=== PATIENT | male | born 1945 | race Caucasian/White ===

== ENCOUNTER 2018-05-08 14:59 | Inpatient (IN) | payer OTHER ==
[2018-05-08] MEDS ORDERED: ACETAMINOPHEN 500 MG TAB TUBE PRN (16:27)
[2018-05-08] MEDS ORDERED: ONDANSETRON DISINTEGRATING 4 MG TAB TUBE PRN (16:27)
[2018-05-08] MEDS ORDERED: BISACODYL 10 MG SUPP PR PRN (16:27)
[2018-05-08] MEDS ORDERED: DEXAMETHASONE 4 MG/ML VIAL IV SCH (16:30)
[2018-05-08] MEDS ORDERED: DEXAMETHASONE 0.5 MG TAB TUBE SCH (17:00)
[2018-05-08] MEDS ORDERED: DEXAMETHASONE 4 MG/ML VIAL PO SCH (17:00)
[2018-05-08] MEDS: MIDODRINE HCL 5 MG TAB TUBE SCH (18:09)
--- NOTE | 2018-05-08 18:30 | GHP ---
DATE OF ADMISSION: 05/08/2018 DATE OF EVALUATION: 05/08/2018. REFERRING FACILITY: [facility]. IMPAIRMENT GROUP: [id number]. DATE OF ONSET: 04/27/2017. POST ADMISSION PHYSICIAN EVALUATION AND REHABILITATION TREATMENT PLAN TIME: 1615. REFERRING PHYSICIAN: Dr. Duron. CONSULTING PHYSICIAN: Gilberto Covarrubias MD, neurosurgeon. REHABILITATION DIAGNOSIS: Debility with central cord syndrome status post ACDF C3-C6. ETIOLOGIC DIAGNOSIS: Traumatic spinal cord dysfunction. DATE OF SURGERY: 04/30/2018. HISTORY OF PRESENT ILLNESS: This patient was admitted to [facility] on 04/27/2018 after a syncopal event, after which he had severe bilateral upper extremity paresthesias. In the hospital an MRI of the cervical spine showed severe spinal canal stenosis at C3-4 through C5-6. He was also diagnosed with a central cord syndrome with upper extremity weakness. He had anterior cervical decompression and fusion of C3-6 on 04/30/2018. Hospital complications included hypotension with the likely etiology of his syncopal episode being orthostatic hypotension, and urinary retention requiring a Duong catheter. He had dysphagia which was pharyngeal in nature and likely due to edema postsurgical. A Dobbhoff tube was placed on 05/05/2018. STUDIES AND LABS IN THE HOSPITAL: Most recent basic metabolic profile showed overall normal electrolytes, but impaired renal function with a creatinine of 1.42. CBC showed anemia with a hemoglobin of 10.2 and hematocrit of 29.6. Platelet count was low at 85. His estimated GFR was low in the 40s. Chest x-ray was normal. MRI of the C-spine was as discussed above. After surgery he had C-spine x-rays which showed no hardware complications and normal alignment. Video esophagram showed dysphagia. The [facility] mental status exam administered on 05/07/2018, and he scored 16/30. PRECAUTIONS: He is a fall risk. He has aspiration precautions and he has orthopedic spine precautions for the C-spine. ACTIVE COMORBIDITIES: He has the tier 2 comorbidity of dysphagia. He otherwise has no tier 1, tier 2 or tier 3 comorbidities. PAST MEDICAL HISTORY: 1. Anemia. 2. Tobin's esophagus. 3. Emphysema. 4. Pancreatitis. 5. Nephrolithiasis on 12/22/2017. 6. Orthostatic hypotension. 7. Cirrhosis of the liver. 8. Pulmonary nodules. 9. Thrombocytopenia. 10. Umbilical hernia. 11. Pilonidal cyst. PAST SURGICAL HISTORY: He has had an appendectomy. He has had a ureteral stent placement and removal. He has had ureteroscopy and ablation of a stone. He has had a cholecystectomy. He has had a surgical procedure for the pilonidal cyst. PREHOSPITAL MEDICATIONS: Prior to admission he was taking tamsulosin at one point for urinary retention, but this was discontinued due to orthostatic hypotension. ADMISSION MEDICATIONS: 1. Acetaminophen 1000 mg per tube q.8 hours. 2. Bisacodyl 10 mg AK daily p.r.n. 3. Dexamethasone 1 mg IV q.12 hours with the last dose being today. 4. Fludrocortisone 0.1 mg per tube daily. 5. Gabapentin 300 mg per tube three times daily. 6. Heparin 5000 units subcu q.12 hours. 7. Midodrine 5 mg per tube three times daily. 8. Ondansetron 5 mg per tube q.8h p.r.n. nausea or vomiting. 9. Oxycodone 5 mg per tube q.4 hours p.r.n. 10. Senna 17.6 mg twice daily p.r.n. constipation. ALLERGIES: There are no known drug allergies. PSYCHOSOCIAL HISTORY: He lives in the upper level of a home with family members living in the basement. He has 2 steps to enter, after which he can live on 1 level. He has a 50 year smoking history but quit several months ago. He reports he has had no alcohol since the age of 19. 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 FAMILY HISTORY: His father of a heart attack. REVIEW OF SYSTEMS: He has some soreness bilaterally of the upper arms. He thinks he may have fallen on his left shoulder. He is aware of some weakness, but thinks he has fairly good strength of the arms and legs. He has some discomfort from the cervical collar, but otherwise denies pain. He has no cough or dyspnea. He has no nausea, vomiting, constipation, or diarrhea. He is sleeping well. He is in good spirits. Otherwise, a 10-point review of systems is negative. PHYSICAL EXAM: VITAL SIGNS: Blood pressure is 116/62, heart rate is 63, respiratory rate is 18, oxygen saturation is 97% on room air, temperature is 36.9 degrees centigrade. His weight is 75.3 kg for a body mass index of 21.3. GENERAL: This is a well-nourished, well-developed man, appears his chronologic age, in bed dressed in street clothes with cervical collar in place. Cooperative and in no acute distress. HEENT: Extraocular movements are intact. Pupils are equal, round, and reactive to light. Mucous membranes are moist. He is edentulous. He has a crowded airway, Mallampati class 3. NECK: There is a surgical scar that appears to be closed with skin glue. There is no erythema or drainage. It is on the left anterior neck. HEART: Sounds are somewhat distant. There is a regular rate and rhythm with no murmurs, rubs, or gallops. LUNGS: Clear to auscultation bilaterally with reduced breath sounds and a prolonged expiratory phase. ABDOMEN: Soft, nontender, nondistended with normoactive bowel sounds and no hepatosplenomegaly. EXTREMITIES: There is no cyanosis, clubbing, or edema. NEUROLOGIC: He is alert and oriented x3. Cranial nerves 2-12 are grossly intact, though he has a weak labial seal bilaterally. Motor strength in the upper extremities is 5/5 at the deltoids, 4/ 5 at the biceps and the triceps. Hand chute builder are 4/5. He is perhaps slightly stronger on the right than the left. In the lower extremities hip flexors are 5 /5, hamstrings 4/5, quadriceps 4/5, plantar flexion 5/5 and dorsiflexion 5/5. Sensation is intact to light touch. Deep tendon reflexes are globally hypoactive. CURRENT LEVEL OF FUNCTION: Per the preadmission screen, he was n.p.o., Grooming required moderate assist, dressing required maximal assist, toileting required moderate assist for a urinal, (though as he has a Duong in place) and minimal assist for transfers to the commode with a front-wheeled walker. He had urinary retention. Bed mobility was done with supervision to minimal assist with voice cues for log rolling. Transfers required supervision with voice cues. He was using a front-wheeled walker. Seated balance was independent. Dynamic seated balance required contact guard assist and dynamic standing balance required minimal assist. Endurance was fair. He was able to ambulate 25 feet with minimal assist and a front-wheeled walker. Communication and cognition were considered to be normal. IMPRESSION: This is a 72-year-old man who suffered a syncopal fall, likely due to orthostatic hypotension, and subsequently developed significant paresthesias of the bilateral upper extremities and weakness. He was diagnosed with severe central canal stenosis of the cervical spine and underwent anterior cervical decompression and fusion on 04/30/2018. Complications included severe pharyngeal dysphagia for which a Dobbhoff tube was placed, and he is n.p.o.; he also had urinary retention and has a Duong in place. He has a chronic coagulopathy, anemia and thrombocytopenia, likely due to cirrhosis. The etiology of the cirrhosis is unclear, perhaps there was a history of non alcoholic steatohepatitis. He reports that he has previously weighed as much as 265 pounds. He is appropriate for inpatient rehabilitation with needs for physical and occupational therapies to optimize his mobility and activities of daily living, as well as speech and language pathology regarding swallowing and cognition. His goal is to complete a rehabilitation stay and then return home with family and supportive services. For a safe discharge, he will need to achieve modified independence for ADLs and functional activities. He will be tolerating the least restrictive diet. He may require assistance for shopping, and ambulation with the least restrictive device. He will need to understand and maintain spinal precautions during all activities. He will have therapy with Physical Therapy, Occupational Therapy, and Speech and Language Pathology for 60 minutes per day for each discipline, 5-7 days of the week. His expected duration of stay is 10-14 days. It is anticipated that upon discharge he will continue to benefit from Home Health services including Nursing, Speech and Language Pathology, a nurse's aide , social work, Occupational Therapy, and Physical Therapy. Additionally, he will likely benefit from a spinal cord injury support group. PLAN: 1. Central cord syndrome, status post C3-6 ACDF on 04/28/2018. PT and OT to optimize mobility and activities of daily living. 2. Severe dysphagia, pharyngeal, likely due to swelling postsurgical. He has been on dexamethasone for several days, last dose of which will be today. He will have intensive therapy with Speech and Language Pathology to optimize his swallow. Will order a dietary consult to optimize his tube feeding. 3. Question of cognitive impairment with a score of 16/30 on the [facility] Mental Status Exam. Further evaluation and treatment per Speech and Language Pathology. 4. Orthostatic hypotension. Continue fludrocortisone 0.1 mg daily and midodrine 5 mg three times daily. I have changed the timing to be before meals to avoid nighttime supine hypertension. Will check orthostatic vitals every morning and any time that he has symptoms. He will wear PAULA hose, as well as an abdominal binder. 5. Urinary retention with likely history of BPH. Previously prescribed tamsulosin. Tamsulosin was discontinued due to hypotension. Will monitor his blood pressure and if he has adequate compensation for the orthostatic hypotension with his current medications, will consider reinitiation of tamsulosin. In any case, we will do a voiding trial after several days during his stay. 6. Emphysema. Appears to be well compensated and not needing oxygen. 7. Symptom management. Continue acetaminophen, gabapentin, and oxycodone. He will be assessed for pain and medications adjusted as needed. 8. Postsurgical precautions. Cervical collar at all times. May remove to work with speech therapy on swallowing. 9. Hepatic cirrhosis, possibly due to nonalcoholic steatohepatitis. Check CBC and CMP in the morning to ensure that his blood counts are improving and to assess the status of his hepatic and renal function. If his platelet count is dropping, consider evaluation for heparin-induced thrombocytopenia, as he does not have a lot of margin in terms of adequacy of platelets. He may have a component of hepatorenal syndrome and will monitor his renal function in order to ensure that medication dosage is appropriate. 10. Pilonidal cyst. Cover with Mepilex dressing to protect against pressure and shear. FOLLOW UP: 1. He will see his primary care physician, Jose Martin Bowling after his discharge. 2. He will see neurosurgeon, Dr. Zamudio, at [facility] in 3-4 weeks, and will need to call to schedule. 3. He will see [facility] about orthostatic hypotension after discharge from inpatient rehabilitation. /[id number]/MODL MTDD
[2018-05-08] MEDS: ACETAMINOPHEN 650 MG/20.3 ML UDCUP TUBE PRN (20:41)
[2018-05-08] MEDS: HEPARIN 5,000 UNIT/0.5 ML INJ SC SCH (20:45)
[2018-05-08] MEDS: GABAPENTIN 250 MG/5 ML 30 ML BOTTLE TUBE SCH (20:55)
[2018-05-09 07:00] LABS: PLATELET COUNT 98 10^3/uL (150-400)
[2018-05-09] MEDS: oxyCODONE ORAL SOLUTION 10 MG/0.5 ML UDSYR TUBE PRN ×2 (07:58→15:04)
[2018-05-09] MEDS: ACETAMINOPHEN 650 MG/20.3 ML UDCUP TUBE PRN ×2 (08:01→17:48)
[2018-05-09] MEDS: GABAPENTIN 250 MG/5 ML 30 ML BOTTLE TUBE SCH ×3 (08:05→20:07)
[2018-05-09] MEDS: FLUDROCORTISONE ACETATE 0.1 MG TAB TUBE SCH (08:07)
[2018-05-09] MEDS: MIDODRINE HCL 5 MG TAB TUBE SCH ×3 (08:18→17:47)
[2018-05-09] MEDS: HEPARIN 5,000 UNIT/0.5 ML INJ SC SCH ×2 (08:22→19:59)
--- NOTE | 2018-05-09 09:48 | SOAPPROG ---
SOAP Progress Note Assessment/Plan: Assessment/ Plan: 1. Central cord syndrome, status post C3-6 ACDF on 04/28/2018. PT and OT to optimize mobility and activities of daily living. 2. Severe dysphagia, pharyngeal, likely due to swelling postsurgical. He has been on dexamethasone for several days, last dose of which will be 05/08/18. - Speech and Language Pathology to optimize his swallow. - Dietary consult to optimize his tube feeding in the meantime. 3. Question of cognitive impairment with a score of 16/30 on the [facility] Mental Status Exam. - Speech and Language Pathology to continue to assess. - RN's providing appropriate precautions - not showing any impulsivity 4. Orthostatic hypotension. - fludrocortisone 0.1 mg daily and midodrine 5 mg three times daily. Will adjust or add PRN as needed to help with therapy participation - check orthostatic vitals every morning and any time that he has symptoms. - Wear PAULA hose, as well as an abdominal binder. 5. Urinary retention with likely history of BPH. Previously prescribed tamsulosin. Tamsulosin was discontinued due to hypotension. - Likely combination of Neurogenic bladder + previous emptying challenges. - Currently using a butler catheter for bladder management. Will allow for next couple days to allow patient to 'settle' in to rehab. feeling somewhat overwhelmed by all the different needs he has currently. - Introduced concept of intermittent cathing. Will ask RN's to provide education prior to butler removal. 6. Emphysema. Appears to be well compensated and not needing oxygen. 7. Pain management - Continue acetaminophen, gabapentin, and oxycodone. Adjust as needed 8. Postsurgical precautions. - Per NSG on 05/08 - Ok to remove with eating trials with VEGETABLE THINNER and to transition in to a shower collar - Otherwise should be worn at all times - Incision is healing well - no evidence of infection 9. Hepatic cirrhosis, possibly due to nonalcoholic steatohepatitis. We will recheck CBC and CMP in the morning to ensure that his blood counts are improving and to assess the status of his hepatic and renal function. If his platelet count is dropping, then we will consider evaluation for heparin-induced thrombocytopenia, as he does not have a lot of margin in terms of adequacy of platelets. He may have a component of hepatorenal syndrome and will monitor his renal function in order to ensure that medication dosage is appropriate. - Kidney function improved as compared to labs from the - had Creatinine in the 2's - Plts within normal function per what I have at outside hospital (around 80' s-100's) 10. Anemia - Likely post-op induced. H/H stable at as compared to labs taken over from outside hospital. No evidence of bleeding- will continue to monitor 11. Pilonidal cyst. We will cover with Mepilex dressing to protect against pressure and shear. FOLLOW UP: 1. He will see his primary care physician, Jose Martin Bowling after his discharge. 2. He will see neurosurgeon, Dr. Zamudio, at [facility] in 3-4 weeks, and will need to call to schedule. 3. He will see [facility] about orthostatic hypotension after discharge from inpatient rehabilitation. 05/09/18 09:42 Subjective: Feeling generally OK. Just a lot going on. Able to provide details regarding his fall -not sure that he had any LOC. Pain is pretty well controlled - just tired of having so many 'tubes' around. Reports that use to be a big water drinker and so the dysphagia is pretty frustrating. no new neurologic changes. 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 no fevers/ chills Objective: Vital Signs Temp Pulse Resp BP Pulse Ox 97.5 F 55 L 13 116/63 96 05/09/18 08:00 05/09/18 08:00 05/09/18 08:00 05/09/18 08:00 05/09/18 08:00 Laboratory Results 05/09/18 05:50 05/09/18 05:50 05/08/18 05/09/18 05/10/18 05:59 05:59 05:59 Intake Total 860 Output Total 700 Balance 160 Physical Exam - Physical Exam General Appearance: alert, other (sitting relatively comfortable in his chair. Interactive) EENT: PERRL/EOMI, other (Does have an NG tube - Cervical collar is in place) Respiratory: lungs clear Cardiac/Chest: regular rate, rhythm Abdomen: non-tender, soft Extremities: other (no edema) Neuro/Psych: alert, normal mood/affect ICD10 Worksheet Patient Problems: Problems Problem Status Onset Central cord syndrome Acute Status post cervical spinal fusion Acute
[2018-05-09] MEDS ORDERED: MELATONIN 3 MG TAB PO PRN (09:56)
[2018-05-09] MEDS ORDERED: MELATONIN 3 MG TAB TUBE PRN (10:30)
[2018-05-10] MEDS: oxyCODONE ORAL SOLUTION 10 MG/0.5 ML UDSYR TUBE PRN ×3 (04:05→14:34)
[2018-05-10] MEDS: ACETAMINOPHEN 650 MG/20.3 ML UDCUP TUBE PRN ×2 (07:21→16:03)
[2018-05-10] MEDS: MIDODRINE HCL 5 MG TAB TUBE SCH ×3 (07:45→16:04)
[2018-05-10] MEDS: GABAPENTIN 250 MG/5 ML 30 ML BOTTLE TUBE SCH ×3 (08:13→21:47)
[2018-05-10] MEDS: HEPARIN 5,000 UNIT/0.5 ML INJ SC SCH (08:14)
[2018-05-10] MEDS: FLUDROCORTISONE ACETATE 0.1 MG TAB TUBE SCH (08:14)
--- NOTE | 2018-05-10 09:15 | SOAPPROG ---
SOAP Progress Note Assessment/Plan: Assessment/ Plan: 1. Central cord syndrome, status post C3-6 ACDF on 04/28/2018. PT and OT to optimize mobility and activities of daily living. 2. Severe dysphagia, pharyngeal, likely due to swelling postsurgical. He has been on dexamethasone for several days, last dose of which will be 05/08/18. - Speech and Language Pathology to optimize his swallow. - Dietary consult to optimize his tube feeding in the meantime. 3. Question of cognitive impairment with a score of 16/30 on the [facility] Mental Status Exam. - Speech and Language Pathology to continue to assess. - RN's providing appropriate precautions - not showing any impulsivity at current time 4. Orthostatic hypotension.- had some problems predating this injury which could also be contributing - fludrocortisone 0.1 mg daily and midodrine 5 mg three times daily. Add 5mg PRN in the am if BP not responding within 1hr after taking scheduled dose - Can consider neosynephrine drops if needed for quicker acting support especially if not tolerating therapy well. - check orthostatic vitals every morning and any time that he has symptoms. - Wear PAULA hose, as well as an abdominal binder. 5. Urinary retention with likely history of BPH. Previously prescribed tamsulosin. Tamsulosin was discontinued due to hypotension. - Likely combination of Neurogenic bladder + previous emptying challenges. - Currently using a butler catheter for bladder management. Will allow for next couple days to allow patient to 'settle' in to rehab. feeling somewhat overwhelmed by all the different needs he has currently. - Introduced concept of intermittent cathing. Will ask RN's to provide education prior to butler removal. 6. Emphysema. Appears to be well compensated and not needing oxygen. 7. Pain management - Mostly situated in the shoulders - Continue acetaminophen, gabapentin, and oxycodone. Adjust as needed - Add lidocaine patch at night to both shoulders - hopefully this will be helpful. May also consider voltaren gel 8. Postsurgical precautions. - Per NSG on 05/08 - Ok to remove with eating trials with MAIL PROCESSING ASSOCIATE and to transition in to a shower collar - Otherwise should be worn at all times - Incision is healing well - no evidence of infection 9. Hepatic cirrhosis, possibly due to nonalcoholic steatohepatitis. We will recheck CBC and CMP in the morning to ensure that his blood counts are improving and to assess the status of his hepatic and renal function. If his platelet count is dropping, then we will consider evaluation for heparin-induced thrombocytopenia, as he does not have a lot of margin in terms of adequacy of platelets. He may have a component of hepatorenal syndrome and will monitor his renal function in order to ensure that medication dosage is appropriate. - Creatinine was in the 2's in th earlier part of Apr. Most recent BUN 30/ Cr 1.4 (05/09/18) - Plts within normal function per what I have at outside hospital (around 80' s-100's) 10. Anemia - Likely post-op induced. H/H stable around 02/10 as compared to labs taken over from outside hospital. No evidence of bleeding- will continue to monitor intermittently. 11. Pilonidal cyst. We will cover with Mepilex dressing to protect against pressure and shear. 12. Insomnia - Likely a combination of surroundings, pain and irritants (NG tube , collar,etc) - Have added Melatonin 3mg qhs. Will monitor effect FOLLOW UP: 1. He will see his primary care physician, Jose Martin Bowling after his discharge. 2. He will see neurosurgeon, Dr. Zamudio, at [facility] in 3-4 weeks, and will need to call to schedule. 3. He will see [facility] about orthostatic hypotension after discharge from inpatient rehabilitation. 05/10/18 09:34 Subjective: Had a rough night last night - Struggled with sleep - 2/2 pain/location. feeling a little defeated today. 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 BP still low today - Will need to work with his PCP tomorrow when they are in the office to determine the extend of the work up that was completed prior (since this isn't fully new although seems somewhat exacerbated since the cervical injury). No BP since arrival on our service. Still with butler in place Objective: Vital Signs Temp Pulse Resp BP Pulse Ox 97.4 F 76 16 108/63 98 05/10/18 06:04 05/10/18 06:04 05/10/18 06:04 05/10/18 06:04 05/10/18 06:04 Laboratory Results 05/09/18 05:50 05/09/18 05:50 05/09/18 05/10/18 05/11/18 05:59 05:59 05:59 Intake Total 252 274 8162 Output Total 700 825 Balance 216 55 2251 Physical Exam - Physical Exam General Appearance: alert, other (Appears tired and a little down today) EENT: PERRL/EOMI, other (Well healing incision on the anterior neck, Cervical collar in place) Respiratory: lungs clear, normal breath sounds Cardiac/Chest: regular rate, rhythm Abdomen: non-tender, soft, other (Abdominal Binder in place) Extremities: other (No LE edema, Has compression stockings on) Neuro/Psych: alert ICD10 Worksheet Patient Problems: Problems Problem Status Onset Central cord syndrome Acute Status post cervical spinal fusion Acute
[2018-05-10] MEDS ORDERED: PNEUMOC 13-VAL CONJ-DIP CRM/PF 0.5 ML SYR (PREVNAR 13) IM ONE (09:18)
--- NOTE | 2018-05-10 11:57 | PDOREHIP ---
Admission [facility] - Admission - 3 Day Assessment Period Admission Date/Day 1: 05/08/18 Day 2: 05/09/18 Day 3: 05/10/18 - Active Diagnoses Comorbidities and Co-existing Conditions at Admission: 11852. None of the Above - Skin Conditions Unhealed Pressure Ulcer (1 or more/Stage 1 or >)-Admission: 0. No # Stage 1 Pressure Ulcers-Admission: 0 # Stage 2 Pressure Ulcers-Admission: 0 # Stage 3 Pressure Ulcers-Admission: 0 # Stage 4 Pressure Ulcers-Admission: 0 # Unstageable Pressure Ulcers (Non-remove Dress)-Admission: 0 # Unstageable Pressure Ulcers (Slough/Eschar)-Admission: 0 # Unstageable Pressure Ulcers (Deep Tissue Injury)-Admission: 0
[2018-05-10] MEDS: SENNOSIDES 17.6 MG/10 ML UDL PO PRN (14:33)
[2018-05-10] MEDS ORDERED: HYDROmorphONE/DILAUDID 1 MG/ML INJ SC PRN (19:52)
[2018-05-10] MEDS ORDERED: ACETAMINOPHEN 650 MG SUPP PR PRN (19:53)
[2018-05-10] MEDS ORDERED: HEPARIN 5,000 UNIT/0.5 ML INJ SC ONE (20:00)
[2018-05-10] MEDS: HYDROmorphONE/DILAUDID 2 MG/ML INJ SC PRN (20:45)
[2018-05-10] MEDS ORDERED: LIDOCAINE 4%/MENTHOL 1% PATCH TD SCH (21:00)
[2018-05-10] MEDS ORDERED: PATCH REMOVAL 1 EA PATCH TD SCH (21:00)
[2018-05-11] MEDS: HYDROmorphONE/DILAUDID 2 MG/ML INJ SC PRN ×3 (00:32→21:25)
[2018-05-11] MEDS ORDERED: MIDODRINE HCL 5 MG TAB TUBE PRN (08:00)
--- NOTE | 2018-05-11 13:01 | SOAPPROG ---
SOAP Progress Note Assessment/Plan: Assessment: Central cord syndrome, status post C3-6 ACDF on 04/28/2018. * Initial functional independence measure is 67 on 05/11/2018. He is independent with bed mobility. Transfers require standby assistance and cues. He ambulated 170 ft with a front wheeled walker and standby assist. He climbed and descended 3 steps with 1 rail, contact guard assist. He has decreased endurance. Upper body dressing required minimal assist and cues. Lower body dressing required moderate assist but maximal assist for Paula hose. Grooming and hygiene were done seated with minimal assistance. * Continue PT and OT to optimize mobility and activities of daily living. Severe dysphagia, pharyngeal, likely due to swelling postsurgical. He has completed a course of dexamethasone. * Continue Speech and Language Pathology to optimize his swallow. * Dietary consult to optimize his tube feeding. * Feeding to accidentally dislodged yesterday, 05/10/2018. Rehab nursing has been unable to place an NG. Going to Radiology today for tube placement. If not successful he needs GI or IR consult and PEG placement. Question of cognitive impairment with a score of 16/30 on the [facility] Mental Status Exam. Further evaluation and treatment per Speech and Language Pathology. Orthostatic hypotension. Continue fludrocortisone 0.1 mg daily and midodrine 5 mg three times daily meals. He will wear PAULA hose, as well as an abdominal binder. * Check orthostatic vitals every morning and any time that he has symptoms. * An extra morning dose of midodrine was added as needed for orthostatic symptoms, starting 05/11/2018.. Urinary retention with likely history of BPH. Previously prescribed tamsulosin. Tamsulosin was discontinued due to hypotension. * If he has adequate compensation for the orthostatic hypotension with his current medications, will consider reinitiation of tamsulosin. * Voiding trial after several days during his stay. * Consider training in intermittent self catheterization. Emphysema. Appears to be well compensated and not needing oxygen. Symptom management. Continue acetaminophen, gabapentin, and oxycodone. He will be assessed for pain and medications adjusted as needed. Hepatic cirrhosis, possibly due to nonalcoholic steatohepatitis. * He may have a component of hepatorenal syndrome. Renal function is stable on labs 05/09/2018 with creatinine at 1.4 an estimated GFR of 50. * Anemia and thrombocytopenia are stable on labs 05/09/2018. Pilonidal cyst. Cover with Mepilex dressing to protect against pressure and shear. Postsurgical precautions. Cervical collar at all times. May remove to work with speech therapy on swallowing. DISPOSITION: Attended staffing, 15 min. Discussed with case management, nursing, PT, OT. Mobility is considerably improved but he still has needs, and will likely continue to need BREAD WRAPPING MACHINE FEEDER longer than PT and OT. Would ideally also resolve urinary retention before discharge. Tentative discharge date set for . Will discharge home with family. FOLLOW UP: 1. He will see his primary care physician, Jose Martin Bowling after his discharge. 2. He will see neurosurgeon, Dr. Zamudio, at [facility] in 3-4 weeks, and will need to call to schedule. 3. He will see [facility] about orthostatic hypotension after discharge from inpatient rehabilitation. 05/11/18 13:03 Subjective: Dobbhoff tube was inadvertently removed yesterday by an granddaughter. He currently denies pain, fevers, chills, cough, dyspnea. Objective: Vital Signs Temp Pulse Resp BP Pulse Ox 36.8 C 69 16 120/61 97 05/11/18 05:04 05/11/18 05:04 05/11/18 05:04 05/11/18 05:04 05/11/18 05:04 Laboratory Results 05/09/18 05:50 05/09/18 05:50 05/10/18 05/11/18 05/12/18 05:59 05:59 05:59 Intake Total 905 1260 Output Total 825 575 Balance 80 685 - Time Spent With Patient Time Spent With Patient: Greater than 35 min floor time today, including more than 50% of time in coordination of care during staffing meeting, and counseling patient. Physical Exam - Physical Exam General Appearance: WD/WN, alert, no apparent distress Respiratory: normal breath sounds, decreased breath sounds, No crackles, No rhonchi, No wheezing Cardiac/Chest: regular rate, rhythm, edema (Trace bilateral pretibial), No diastolic murmur, No systolic murmur Skin: normal color, warm/dry Neuro/Psych: alert, normal mood/affect, oriented x 3 ICD10 Worksheet Patient Problems: Problems Problem Status Onset Central cord syndrome Acute Status post cervical spinal fusion Acute
[2018-05-11] MEDS ORDERED: LIDOCAINE 2% JELLY 5 ML TUBE ONE (13:57)
[2018-05-11] MEDS ORDERED: BENZOCAINE UNIT DOSE SPRAY HURRICAINE MM ONE (13:57)
[2018-05-11] MEDS ORDERED: NS 1,000 ML IV SCH (14:45)
[2018-05-11] MEDS: ENOXAPARIN 40 MG/0.4 ML SYR SC SCH (18:00)
[2018-05-11] MEDS: GABAPENTIN 250 MG/5 ML 30 ML BOTTLE TUBE SCH ×2 (18:02→21:07)
[2018-05-11] MEDS: FLUDROCORTISONE ACETATE 0.1 MG TAB TUBE SCH (18:02)
[2018-05-11] MEDS: LIDOCAINE 4%/MENTHOL 1% PATCH TD SCH (18:03)
[2018-05-11] MEDS: MIDODRINE HCL 5 MG TAB TUBE SCH ×2 (18:03→19:27)
[2018-05-11] MEDS: PATCH REMOVAL 1 EA PATCH TD SCH (21:07)
[2018-05-11] MEDS: oxyCODONE ORAL SOLUTION 10 MG/0.5 ML UDSYR TUBE PRN (21:25)
[2018-05-12] MEDS: MIDODRINE HCL 5 MG TAB TUBE SCH ×3 (06:22→16:13)
[2018-05-12] MEDS: oxyCODONE ORAL SOLUTION 10 MG/0.5 ML UDSYR TUBE PRN ×4 (06:22→20:10)
[2018-05-12] MEDS: LIDOCAINE 4%/MENTHOL 1% PATCH TD SCH (08:26)
[2018-05-12] MEDS: ENOXAPARIN 40 MG/0.4 ML SYR SC SCH (08:27)
[2018-05-12] MEDS: GABAPENTIN 250 MG/5 ML 30 ML BOTTLE TUBE SCH ×3 (08:27→20:10)
[2018-05-12] MEDS: FLUDROCORTISONE ACETATE 0.1 MG TAB TUBE SCH (08:27)
[2018-05-12] MEDS: SENNOSIDES 17.6 MG/10 ML UDL PO PRN (11:43)
--- NOTE | 2018-05-12 15:22 | SOAPPROG ---
SOAP Progress Note Assessment/Plan: Assessment: Central cord syndrome, status post C3-6 ACDF on 04/28/2018. * Initial functional independence measure is 67 on 05/11/2018. He is independent with bed mobility. Transfers require standby assistance and cues. He ambulated 170 ft with a front wheeled walker and standby assist. He climbed and descended 3 steps with 1 rail, contact guard assist. He has decreased endurance. Upper body dressing required minimal assist and cues. Lower body dressing required moderate assist but maximal assist for Paula hose. Grooming and hygiene were done seated with minimal assistance. * Continue PT and OT to optimize mobility and activities of daily living. Severe dysphagia, pharyngeal, likely due to swelling postsurgical. He has completed a course of dexamethasone. * Continue Speech and Language Pathology to optimize his swallow. As of 2018, he has made little progress. WARE DRESSER advises consideration of PEG placement. * Dietary consult to optimize his tube feeding. * Feeding to accidentally dislodged yesterday, 05/10/2018. Replaced by Radiology , 05/11/2018. Question of cognitive impairment with a score of 16/30 on the [facility] Mental Status Exam. Further evaluation and treatment per Speech and Language Pathology. Orthostatic hypotension. Continue fludrocortisone 0.1 mg daily and midodrine 5 mg three times daily meals. He will wear PAULA hose, as well as an abdominal binder. * Check orthostatic vitals every morning and any time that he has symptoms. * An extra morning dose of midodrine was added as needed for orthostatic symptoms, starting 05/11/2018.. Urinary retention with likely history of BPH. Previously prescribed tamsulosin. Tamsulosin was discontinued due to hypotension. * If he has adequate compensation for the orthostatic hypotension with his current medications, will consider reinitiation of tamsulosin. * Orthostatic blood pressure has improved and he is asymptomatic as of 2018. Will restart tamsulosin at 0.4 mg q.day on 05/12/2018. Voiding trial on . * Consider training in intermittent self catheterization. Emphysema. Appears to be well compensated and not needing oxygen. Symptom management. Continue acetaminophen, gabapentin, and oxycodone. He will be assessed for pain and medications adjusted as needed. Hepatic cirrhosis, possibly due to nonalcoholic steatohepatitis. * He may have a component of hepatorenal syndrome. Renal function is stable on labs 05/09/2018 with creatinine at 1.4 an estimated GFR of 50. * Anemia and thrombocytopenia are stable on labs 05/09/2018. Pilonidal cyst. Cover with Mepilex dressing to protect against pressure and shear. Postsurgical precautions. Cervical collar at all times. May remove to work with speech therapy on swallowing. DISPOSITION: Mobility is considerably improved but he still has needs, and will likely continue to need WARE DRESSER longer than PT and OT. Would ideally also resolve urinary retention before discharge. Tentative discharge date set for . Will discharge home with family. FOLLOW UP: 1. He will see his primary care physician, Jose Martin Bowling after his discharge. 2. He will see neurosurgeon, Dr. Zamudio, at [facility] in 3-4 weeks, and will need to call to schedule. 3. He will see [facility] about orthostatic hypotension after discharge from inpatient rehabilitation. 05/12/18 15:02 Subjective: Slept okay. Not in pain. No cough or dyspnea. Denies feeling lightheaded or dizzy. Objective: Vital Signs Temp Pulse Resp BP Pulse Ox 36.4 C 64 17 113/67 96 05/12/18 05:27 05/12/18 08:00 05/12/18 05:27 05/12/18 08:00 05/12/18 05:27 Laboratory Results 05/09/18 05:50 05/09/18 05:50 05/11/18 05/12/18 05/13/18 05:59 05:59 05:59 Intake Total 1260 2415 Output Total 575 1550 Balance 685 865 Physical Exam - Physical Exam General Appearance: WD/WN, alert, no apparent distress Respiratory: No respiratory distress, No accessory muscle use Skin: normal color, warm/dry Neuro/Psych: alert, normal mood/affect, oriented x 3 ICD10 Worksheet Patient Problems: Problems Problem Status Onset Central cord syndrome Acute Status post cervical spinal fusion Acute
[2018-05-12] MEDS ORDERED: TAMSULOSIN HCL 0.4 MG CAP PO SCH (15:30)
[2018-05-12] MEDS: PATCH REMOVAL 1 EA PATCH TD SCH (20:10)
[2018-05-13] MEDS: oxyCODONE ORAL SOLUTION 10 MG/0.5 ML UDSYR TUBE PRN ×3 (00:10→19:34)
[2018-05-13] MEDS: MIDODRINE HCL 5 MG TAB TUBE SCH ×3 (07:01→15:49)
[2018-05-13] MEDS: LIDOCAINE 4%/MENTHOL 1% PATCH TD SCH (07:52)
[2018-05-13] MEDS: FLUDROCORTISONE ACETATE 0.1 MG TAB TUBE SCH (08:31)
[2018-05-13] MEDS: GABAPENTIN 250 MG/5 ML 30 ML BOTTLE TUBE SCH ×3 (08:31→21:47)
[2018-05-13] MEDS: ENOXAPARIN 40 MG/0.4 ML SYR SC SCH (08:31)
--- NOTE | 2018-05-13 14:18 | SOAPPROG ---
SOAP Progress Note Assessment/Plan: Assessment: Central cord syndrome, status post C3-6 ACDF on 04/28/2018. * Initial functional independence measure is 67 on 05/11/2018, improved to 72 as of 05/13/2018. Supervision for transfers. Walked 350 ft with standby assist. Climbed and descended 3 steps with standby assist. Upper body and lower body dressing with standby assist except needs assist for Duong catheter. Independent with bed mobility. He has reduced endurance. * Continue PT and OT to optimize mobility and activities of daily living. Severe dysphagia, pharyngeal, likely due to swelling postsurgical. He has completed a course of dexamethasone. * Continue Speech and Language Pathology to optimize his swallow. As of 2018, he has made little progress. SANDBLAST OPERATOR advises consideration of PEG placement. * Discussed with patient 05/13/2018. He prefers to wait several more days before deciding. * Feeding to accidentally dislodged yesterday, 05/10/2018. Replaced by Radiology , 05/11/2018. Question of cognitive impairment with a score of 18/30 on the [facility] Mental Status Exam on 10/01/2018. Further evaluation and treatment per Speech and Language Pathology. Orthostatic hypotension. Continue fludrocortisone 0.1 mg daily and midodrine 5 mg three times daily meals. He will wear PAULA hose, as well as an abdominal binder. * Check orthostatic vitals every morning and any time that he has symptoms. * An extra morning dose of midodrine was added as needed for orthostatic symptoms, starting 05/11/2018.. Urinary retention with likely history of BPH. Previously prescribed tamsulosin. Tamsulosin was discontinued due to hypotension. * If he has adequate compensation for the orthostatic hypotension with his current medications, will consider reinitiation of tamsulosin. * Orthostatic blood pressure has improved and he is asymptomatic as of 2018. Unable to restart tamsulosin because it can't be administered through the NG tube. Voiding trial on 05/15/2018. * Consider training in intermittent self catheterization. Emphysema. Appears to be well compensated and not needing oxygen. Symptom management. Continue acetaminophen, gabapentin, and oxycodone. He will be assessed for pain and medications adjusted as needed. Hepatic cirrhosis, possibly due to nonalcoholic steatohepatitis. * He may have a component of hepatorenal syndrome. Renal function is stable on labs 05/09/2018 with creatinine at 1.4 an estimated GFR of 50. * Anemia and thrombocytopenia are stable on labs 05/09/2018. Pilonidal cyst. Cover with Mepilex dressing to protect against pressure and shear. Postsurgical precautions. Cervical collar at all times. May remove to work with speech therapy on swallowing. DISPOSITION: Attended staffing, 15 min. Discussed with case management, dietitian, nursing, PT, OT, SANDBLAST OPERATOR. Mobility is considerably improved but he still has needs, and will likely continue to need SANDBLAST OPERATOR longer than PT and OT. Would ideally also resolve urinary retention before discharge. Tentative discharge date set for 05/22/2018. Will discharge home with family. FOLLOW UP: 1. He will see his primary care physician, Jose Martin Bowling after his discharge. 2. He will see neurosurgeon, Dr. Zamudio, at [facility] in 3-4 weeks, and will need to call to schedule. 3. He will see [facility] about orthostatic hypotension after discharge from inpatient rehabilitation. 05/13/18 14:14 Subjective: Continues to have severe dysphagia and speech pathology is recommending consideration of PEG tube placement. Otherwise he is without complaints. He denies symptoms of dizziness or lightheadedness with standing. Nursing reports no bowel movement for several days. Objective: Vital Signs Temp Pulse Resp BP Pulse Ox 36.8 C 60 16 110/59 L 97 05/13/18 06:43 05/13/18 12:33 05/13/18 06:43 05/13/18 12:33 05/13/18 12:33 Laboratory Results 05/09/18 05:50 05/09/18 05:50 05/12/18 05/13/18 05/14/18 05:59 05:59 05:59 Intake Total 2415 2770 Output Total 1550 1725 Balance 865 1045 Physical Exam - Physical Exam General Appearance: WD/WN, alert, no apparent distress Respiratory: No respiratory distress, No accessory muscle use Skin: normal color, warm/dry Neuro/Psych: alert, normal mood/affect, oriented x 3, abnormal gait (Step through pattern with front wheeled walker) ICD10 Worksheet Patient Problems: Problems Problem Status Onset Central cord syndrome Acute Status post cervical spinal fusion Acute
[2018-05-13] MEDS: PATCH REMOVAL 1 EA PATCH TD SCH ×2 (21:00→22:00)
[2018-05-13] MEDS: ACETAMINOPHEN 650 MG/20.3 ML UDCUP TUBE PRN (21:46)
[2018-05-14] MEDS: oxyCODONE ORAL SOLUTION 10 MG/0.5 ML UDSYR TUBE PRN ×2 (04:24→22:32)
[2018-05-14] MEDS: MIDODRINE HCL 5 MG TAB TUBE SCH ×3 (07:00→17:58)
[2018-05-14] MEDS: LIDOCAINE 4%/MENTHOL 1% PATCH TD SCH (07:09)
[2018-05-14] MEDS: ENOXAPARIN 40 MG/0.4 ML SYR SC SCH (07:10)
[2018-05-14] MEDS: GABAPENTIN 250 MG/5 ML 30 ML BOTTLE TUBE SCH ×3 (08:31→22:32)
[2018-05-14] MEDS: FLUDROCORTISONE ACETATE 0.1 MG TAB TUBE SCH (08:32)
[2018-05-14] MEDS ORDERED: PANCREASE FOR DOBHOFF 50 ML BTL TUBE ONE (09:49)
--- NOTE | 2018-05-14 12:59 | SOAPPROG ---
SOAP Progress Note Assessment/Plan: Assessment: Central cord syndrome, status post C3-6 ACDF on 04/28/2018. * Initial functional independence measure is 67 on 05/11/2018, improved to 72 as of 05/13/2018. Supervision for transfers. Walked 350 ft with standby assist. Climbed and descended 3 steps with standby assist. Upper body and lower body dressing with standby assist except needs assist for Duong catheter. Independent with bed mobility. He has reduced endurance. * Continue PT and OT to optimize mobility and activities of daily living. Severe dysphagia, pharyngeal, likely due to swelling postsurgical. He has completed a course of dexamethasone. * Continue Speech and Language Pathology to optimize his swallow. As of 2018, he has made little progress. IP LITIGATION ASSOCIATE advises consideration of PEG placement. * Discussed with patient 05/13/2018. He prefers to wait several more days before deciding. * Feeding to accidentally dislodged 05/10/2018. Replaced by Radiology, 2018. Question of cognitive impairment with a score of 18/30 on the [facility] Mental Status Exam on 10/01/2018. Further evaluation and treatment per Speech and Language Pathology. Orthostatic hypotension. Continue fludrocortisone 0.1 mg daily and midodrine 5 mg three times daily meals. He will wear PAULA hose, as well as an abdominal binder. * Check orthostatic vitals every morning and any time that he has symptoms. * An extra morning dose of midodrine was added as needed for orthostatic symptoms, starting 05/11/2018.. Urinary retention with likely history of BPH. Previously prescribed tamsulosin. Tamsulosin was discontinued due to hypotension. * If he has adequate compensation for the orthostatic hypotension with his current medications, will consider reinitiation of tamsulosin. * Orthostatic blood pressure has improved and he is asymptomatic as of 2018. Unable to restart tamsulosin because it can't be administered through the NG tube. Voiding trial on 05/15/2018. * Consider training in intermittent self catheterization. Emphysema. Appears to be well compensated and not needing oxygen. Symptom management. Continue acetaminophen, gabapentin, and oxycodone. He will be assessed for pain and medications adjusted as needed. Hepatic cirrhosis, possibly due to nonalcoholic steatohepatitis. * He may have a component of hepatorenal syndrome. Renal function is stable on labs 05/09/2018 with creatinine at 1.4 an estimated GFR of 50. * Anemia and thrombocytopenia are stable on labs 05/09/2018. Pilonidal cyst. Cover with Mepilex dressing to protect against pressure and shear. Postsurgical precautions. Cervical collar at all times. May remove to work with speech therapy on swallowing. DISPOSITION: Attended staffing, 15 min. Discussed with case management, dietitian, nursing, PT, OT, IP LITIGATION ASSOCIATE. Mobility is considerably improved but he still has needs, and will likely continue to need IP LITIGATION ASSOCIATE longer than PT and OT. Would ideally also resolve urinary retention before discharge. Tentative discharge date set for 05/22/2018. Will discharge home with family. FOLLOW UP: 1. He will see his primary care physician, Jose Martin Bowling after his discharge. 2. He will see neurosurgeon, Dr. Zamudio, at [facility] in 3-4 weeks, and will need to call to schedule. 3. He will see [facility] about orthostatic hypotension after discharge from inpatient rehabilitation. 05/14/18 12:57 Subjective: NG tube is clogged this morning. He reports some lightheadedness when standing with therapies this morning. Otherwise no complaints. Not in pain. No cough or dyspnea, no fevers or chills. He remains undecided regarding PEG tube placement and feels he needs to discuss it with his . Objective: Vital Signs Temp Pulse Resp BP Pulse Ox 36.7 C 56 L 16 108/60 98 05/14/18 06:50 05/14/18 09:19 05/14/18 06:50 05/14/18 09:19 05/14/18 06:50 Laboratory Results 05/09/18 05:50 05/09/18 05:50 05/13/18 05/14/18 05/15/18 05:59 05:59 05:59 Intake Total 2770 4516 Output Total 1725 1250 Balance 1045 826 Physical Exam - Physical Exam General Appearance: WD/WN, alert, no apparent distress Respiratory: No respiratory distress, No accessory muscle use Skin: normal color, warm/dry Neuro/Psych: alert, normal mood/affect, oriented x 3 ICD10 Worksheet Patient Problems: Problems Problem Status Onset Central cord syndrome Acute Status post cervical spinal fusion Acute
[2018-05-14] MEDS: NS W/ 20 KCl/L 1,000 ML IV SCH (16:46)
[2018-05-14] MEDS ORDERED: LIDOCAINE 2% JELLY 20 ML (UROJECT) ONE (20:05)
[2018-05-14] MEDS: PATCH REMOVAL 1 EA PATCH TD SCH (22:34)
[2018-05-15] MEDS: HYDROmorphONE/DILAUDID 2 MG/ML INJ SC PRN (02:43)
[2018-05-15] MEDS: NS W/ 20 KCl/L 1,000 ML IV SCH (05:48)
[2018-05-15] MEDS: MIDODRINE HCL 5 MG TAB TUBE SCH ×2 (06:27→15:59)
[2018-05-15] MEDS: FLUDROCORTISONE ACETATE 0.1 MG TAB TUBE SCH (07:58)
[2018-05-15] MEDS: GABAPENTIN 250 MG/5 ML 30 ML BOTTLE TUBE SCH (07:58)
[2018-05-15] MEDS: LIDOCAINE 4%/MENTHOL 1% PATCH TD SCH (08:14)
[2018-05-15] MEDS: ENOXAPARIN 40 MG/0.4 ML SYR SC SCH (08:15)
[2018-05-15 08:27] VITALS: BP 118/64
[2018-05-15] MEDS ORDERED: ACETAMINOPHEN 650 MG SUPP PR PRN (13:56)
--- NOTE | 2018-05-15 16:35 | PDOREHIP ---
Admission [facility] - Admission - 3 Day Assessment Period Admission Date/Day 1: 05/08/18 Day 2: 05/09/18 Day 3: 05/10/18 - Active Diagnoses Comorbidities and Co-existing Conditions at Admission: [id number]. None of the Above Discharge [facility] - Discharge - 3 Day Assessment Period 2 Days Prior to Anticipated Discharge Date: 05/20/18 1 Day Prior to Anticipated Discharge Date: 05/21/18 Anticipated Discharge Date: 05/22/18 - Discharge Skin Conditions Unhealed Pressure Ulcer (1 or more/Stage 1 or >)-Discharge: 0. No # Stage 1 Pressure Ulcers-Discharge: 0 # Stage 2 Pressure Ulcers-Discharge: 0 # of These Stage 2 Pressure Ulcers Present on Admission: 0 # Stage 3 Pressure Ulcers-Discharge: 0 # of These Stage 3 Pressure Ulcers Present on Admission: 0 # Stage 4 Pressure Ulcers-Discharge: 0 # of These Stage 4 Pressure Ulcers Present on Admission: 0 # Unstageable Pressure Ulcers (Non-remove Dress)-Discharge: 0 # These Unstageable Pressure Ulcers (NRD)-Present on Admit: 0 # Unstageable Pressure Ulcers (Slough/Eschar)-Discharge: 0 # These Unstageable Pressure Ulcers(Slough) Present on Admit: 0 # Unstageable Pressure Ulcers (Deep Tissue Injury)-Discharge: 0 # These Unstageable Pressure Ulcers (DTI) Present on Admit: 0
--- NOTE | 2018-05-15 19:27 | GDS ---
[f rep st] DISCHARGE SUMMARY ADMITTING DIAGNOSIS: Debility and dysphagia, status post C3 to C6 anterior cervical discectomy and f usion following a fall and central cord syndrome. DISCHARGE DIAGNOSES: 1. Debility and dysphagia, status post C3 to C6 anterior cervical discectomy and fusion following a fall and central cord syndrome. 2. Orthostatic hypotension. 3. Urinary retention. COMPLICATIONS: He had multiple complications of his feeding tube. CONSULTATIONS: There were none. PROCEDURES: He had feeding tube replacement and had clogged feeding tube opened by [facility] on 2 occasions. HISTORY AND HOSPITAL COURSE: This patient came to inpatient rehabilitation from [facility]. He had presented there after a fall with paresthesias in his upper extremities. The fa ll was due to orthostatic hypotension. He was diagnosed with central cord syndrome and found to have critical cervical spinal stenosis. He underwent surgery with neurosurgeon, Dr. Su, who did a C3 through C6 ACDF. He came through the surgery well but had severe dysphagia and was unable to take an y nutrition p.o. An NG tube was placed at [facility]. He was doing well in rehabilitation and recovering his mobility. He was able to walk 350 feet with s tandby assist and climb and descend 3 steps with standby assist. His orthostatic symptoms were well controlled on fludrocortisone and midodrine. His dysphagia did not improve. Speech and Language Pat hology were advising PEG tube placement. He had several issues with the NG tube. It was inadvertent ly removed by his baby granddaughter, who grabbed it while visiting. It was replaced by [facility] after nursing was unable to pass an NG tube. It subsequently became clogged and needed to b e cleared by Radiology, and finally it was dislodged another time inadvertently by the patient. Arra ngements were made with his insurer, [facility], for him to return to [facility] for placement of a PEG tube or G-tube. He was discharged to [facility] on 05/15. DISCHARGE PLAN: Condition upon discharge is good. Disposition is [facility] wi plan for placement of a PEG tube or G-tube. Activity: Until he can resume taking midodrine and f ludrocortisone, he will need assistance for mobility-related tasks that involve upright posture due t o fall risk from orthostatic hypotension. Diet: He is n.p.o. MEDICATIONS ON DISCHARGE: 1. Acetaminophen rectal or per tube. 2. Bisacodyl 10 mg [facility] daily p.r.n. 3. Enoxaparin 40 mg subcutaneous daily. 4. Fludrocortisone 0.1 mg per tube daily. 5. Gabapentin 300 mg per tube t.i.d. 6. Hydromorphone 0.25-0.5 mg subcutaneous q.4 hours p.r.n. severe pain. 7. Melatonin 3 mg per tube q.h.s. p.r.n. 8. Midodrine 5 mg per tube at 0700, 1200, and 1600, and 5 mg per tube at 0800 p.r.n. systolic blood pressure less than . 9. Ondansetron 4 mg per tube q.8 hours p.r.n. nausea or vomiting. 10. Oxycodone 5 mg per tube q.4 hours p.r.n. pain. 11. Sodium chloride with 20 mEq/L of potassium at 100 mL/h continuous until PEG tube can be placed a nd tube feeding resumed. 12. Senna 17.6 mg per tube b.i.d. p.r.n. ISSUES TO BE ADDRESSED AT FOLLOWUP: 1. Severe dysphagia with need for feeding tube. 2. Orthostatic hypotension with need for continued hydration as well as fludrocortisone and midodrin e. 3. Debility post surgery with need for PT and OT. 4. Dysphagia with need for feeding tube and continue with Speech and Language Pathology. It is hope d that the feeding tube can be placed later today or tomorrow early in the day and that he can return to inpatient rehabilitation by the end of the day on tomorrow, May 16. Greater than 30 minutes were spent on this discharge, including multiple phone calls and consultation s with Case Management regarding coordination of care to arrange feeding tube placement, medication r econciliation, discussion with the [facility], and counseling patient. /[id number]/MODL
== END 2018-05-15 15:10 | disposition short-term general hospital (02) | DRG 946 ==
LOC: BREH 14:59
PROVIDERS: ADMIT Internal Medicine Hospice and Palliative Medicine; ATTEND Internal Medicine Hospice and Palliative Medicine
DX: R53.81 Other malaise (principal); S14.129D Central cord syndrome at unspecified level of cervical spinal cord, subsequent encounter; W19.XXXD Unspecified fall, subsequent encounter; Z98.1 Arthrodesis status; I95.1 Orthostatic hypotension; K22.70 Barrett's esophagus without dysplasia; N40.1 Benign prostatic hyperplasia with lower urinary tract symptoms; R33.8 Other retention of urine; K75.81 Nonalcoholic steatohepatitis (NASH); J43.9 Emphysema, unspecified; D64.9 Anemia, unspecified; Z87.891 Personal history of nicotine dependence; Z87.442 Personal history of urinary calculi; R13.10 Dysphagia, unspecified
CPT/HCPCS: 92507-GN; 92523-GN; 92526-GN; 92610-GN; 97110-GO; 97110-GP; 97112-GP; 97116-GP; 97161-GP; 97166-GO; 97530-GO; 97530-GP; 97535-GO; G0009; J1170; J1644; J1650